=== PATIENT | male | born 1990 | race Caucasian/White ===

== ENCOUNTER 2018-01-22 13:39 | Emergency (ER) | payer SELFPAY ==
[~2018-01-22] VITALS: Ht 185.4 cm; Wt 72.0 kg
[2018-01-22] MEDS ORDERED: SULF1TAB49 PO (14:42)
[2018-01-22] MEDS ORDERED: CEPH-572 PO (14:42)
[2018-01-22 14:52] VITALS: BP 133/73
== END 2018-01-22 14:53 | disposition home or self-care (01) ==
LOC: ER 13:39
DX: S90.415A Abrasion, left lesser toe(s), initial encounter (principal); L03.116 Cellulitis of left lower limb; B35.3 Tinea pedis; Z79.899 Other long term (current) drug therapy; Z86.14 Personal history of Methicillin resistant Staphylococcus aureus infection; X08.8XXA Exposure to other specified smoke, fire and flames, initial encounter; Y93.89 Activity, other specified; Y92.89 Other specified places as the place of occurrence of the external cause; Y99.8 Other external cause status
CPT/HCPCS: 99283

== ENCOUNTER 2023-02-22 11:54 | Inpatient (IN) | payer OTHER ==
[~2023-02-22] VITALS: Ht 185.4 cm; Wt 82.0 kg
[2023-02-22 12:17] VITALS: BP 136/89
[2023-02-22 12:37] LABS: BASOPHILS % (AUTO) 0.5 % (0-1); EOSINOPHILS # (AUTO) 0.2 X10'3 (0-0.9); EOSINOPHILS % (AUTO) 2.8 % (0-6); HEMATOCRIT 39.6 % (42.0-52.0); LYMPHOCYTES # (AUTO) 1.5 X10'3 (1.1-4.8); LYMPHOCYTES % (AUTO) 26.4 % (21-51); MEAN CORPUSCULAR HEMOGLOBIN 28.5 PG (27.0-31.0); MEAN CORPUSCULAR HGB CONC 32.7 g/dL (33.0-36.5); MEAN CORPUSCULAR VOLUME 87.1 FL (78-98); MEAN PLATELET VOLUME 6.8 FL (7.4-10.4); MONOCYTES # (AUTO) 0.5 X10'3 (0-0.9); MONOCYTES % (AUTO) 8.8 % (2-12); NEUTROPHILS # (AUTO) 3.4 X10'3 (1.8-7.7); NEUTROPHILS % (AUTO) 61.5 % (42-75); PLATELET COUNT 271 X10'3 (140-440); RED BLOOD COUNT 4.55 X10'6 (4.70-6.10); RED CELL DISTRIBUTION WIDTH 13.9 % (11.5-14.5); WHITE BLOOD COUNT 5.5 X10'3 (4.5-11.0)
[2023-02-22] MEDS ORDERED: NO HOME MEDS (12:45)
[2023-02-22 12:46] LABS: ALANINE AMINOTRANSFERASE 35 U/L (12-78); ALBUMIN 3.7 G/DL (3.4-5.0); ALBUMIN/GLOBULIN RATIO 1.1 (1.1-1.5); ALKALINE PHOSPHATASE 99 IU/L (46-116); ANION GAP 7 (8-16); ASPARTATE AMINO TRANSFERASE 24 U/L (10-37); BILIRUBIN,TOTAL 0.3 MG/DL (0.1-1.0); BLOOD UREA NITROGEN 17 MG/DL (7-18); BUN/CREATININE RATIO 19.5 (10.0-20.0); CALCIUM 8.7 MG/DL (8.5-10.1); CHLORIDE 105 MMOL/L (99-107); CREATININE 0.87 MG/DL (0.60-1.10); GLUCOSE 113 MG/DL (70-104); POTASSIUM 4.2 MMOL/L (3.5-5.1); SODIUM 140 MMOL/L (135-145); TOTAL CARBON DIOXIDE 28.1 MMOL/L (24-32); TOTAL PROTEIN 7.1 G/DL (6.4-8.2); eGFR > 90 ML/MIN
[2023-02-22 12:55] LABS: ETHANOL < 0.010 GM/DL (0.0-0.010)
[2023-02-22 12:56] LABS: ACETAMINOPHEN < 2.0 UG/ML (10-30)
[2023-02-22] MEDS: PEG 3350/Na sulf,bicarb,Cl/KCl oral sol 4 liter bottle PO SCH ×4 (13:12→15:32)
--- NOTE | 2023-02-22 13:46 | NUR ---
PT REQUESTED THAT HIS FATHER BE CALLED AND NOTIFIED THAT HE WAS IN THE HOSPITAL. PT STATED THAT WE COULD GIVE HIS FATHER ANY AND ALL INFORMATION REGARDING HIS HOSPITALIZATION. PT'S FATHER; ANDREA OCHOA WAS CALLED AT AND NOTIFIED THAT PT WAS HOSPITALIZED FOR AN OVERDOSE OF FENTYNL. MR OCHOA WAS GIVEN THE DIRECT PHONE# TO THE ER AND MAIN PHONE# FOR WHEN THE PT IS ADMITTED TO THE FLOOR.
[2023-02-22] MEDS ORDERED: magnesium 2GM in 50ml NS 50 ML IV PRN (14:50)
[2023-02-22] MEDS ORDERED: ondansetron 4mg rapidly disintigrating tab PO PRN (14:50)
[2023-02-22] MEDS ORDERED: potassium Cl 40MEQ/1/2NS 520ml 520 ML IV PRN (14:50)
[2023-02-22] MEDS ORDERED: magnesium Cl slow-release 64mg tablet PO PRN (14:50)
[2023-02-22] MEDS ORDERED: magnesium 4gm in 100ml NS 100 ML IV PRN (14:50)
[2023-02-22] MEDS ORDERED: ondansetron/PF 4mg/2ml inj IV PRN (14:50)
[2023-02-22] MEDS ORDERED: metoclopramide 5 mg/ml inj IV PRN (14:50)
[2023-02-22] MEDS ORDERED: mag hydrox/Alum hydrox/simeth 30ml oral suspension PO PRN (14:50)
[2023-02-22] MEDS ORDERED: potassium Cl 20 mEq SR tablet PO PRN ×2 (14:50)
[2023-02-22] MEDS ORDERED: bisacodyl 10mg suppository rectal RC PRN (14:50)
[2023-02-22] MEDS ORDERED: magnesium hydroxide 30ml (MOM) UD suspension PO PRN (14:50)
[2023-02-22] MEDS ORDERED: normal saline 1000ml 1,000 ML IV SCH (14:50)
[2023-02-22] MEDS ORDERED: acetaminophen 325mg tablet PO PRN ×2 (14:50)
[2023-02-22] MEDS ORDERED: nicotine 21mg patch - 24 hr TD ONE (15:20)
[2023-02-22] MEDS ORDERED: LORazepam 2 mg/ml vial IV PRN (15:20)
[2023-02-22] MEDS ORDERED: LORazepam 0.5 MG tablet PO PRN (15:20)
--- NOTE | 2023-02-22 15:44 | NUR ---
Father Salvatore phone number: [phone] Mother Mary: [phone]
--- NOTE | 2023-02-22 15:47 | NUR ---
Left a voicemail for mother to call back [facility] ED
--- NOTE | 2023-02-22 16:14 | NUR ---
DR BARCENAS CALLED, REQUESTING THAT PT'S STOOL BE SCREENED FOR THE FENTYNAL PACKET TO BE TURNED OVER TO TRANSFER ENGINEER OFFICERS WHEN RETRIEVED.
--- NOTE | 2023-02-22 16:20 | NUR ---
WITNESSED PT PLAYING WITH HIS PIV, PULLING AT THE TAPE. PT INSTRUCTED TO LEAVE THE PIV ALONE, RECONNECTED HIM BACK TO HIS PIV FLUIDS. PT ASKED HOW HIS "FIANCE" WAS AND TOLD THAT THIS WELDING MACHINE OPERATOR FRICTION HAD NOT CHECKED ON HER FOR A WHILE AND WOULD LET HIM KNOW HOW SHE WAS.
--- NOTE | 2023-02-22 16:26 | NUR ---
Pt ran out of his room and ran out of the ambulance bay. charge nurse aware, primary nurse aware, security called and SO called.
[2023-02-22] MEDS ORDERED: docusate sod 100mg capsule PO SCH (20:00)
[2023-02-22] MEDS ORDERED: K and/or MAG REPLACEMENT MC SCH (20:00)
[2023-02-22] MEDS ORDERED: temazepam 15mg capsule PO PRN (21:00)
[2023-02-23] MEDS ORDERED: nicotine 21mg patch - 24 hr TD SCH (08:00)
== END 2023-02-22 16:29 | disposition left against medical advice (07) | DRG 918 ==
LOC: ER 11:54 → ED HOLD 14:52
PROVIDERS: ADMIT Family Medicine; ATTEND Family Medicine
DX: T40.411A Poisoning by fentanyl or fentanyl analogs, accidental (unintentional), initial encounter (principal); F17.210 Nicotine dependence, cigarettes, uncomplicated; F15.90 Other stimulant use, unspecified, uncomplicated; Z79.899 Other long term (current) drug therapy; Y92.89 Other specified places as the place of occurrence of the external cause
CPT/HCPCS: 36415; 74018; 80053; 80320; 80329; 85025; 99285; A4615; G0378; J7030